=== PATIENT | male | born 1945 | race Caucasian/White ===

== ENCOUNTER 2024-01-26 11:32 | Outpatient (CLI) | payer OTHER, SELFPAY ==
--- NOTE | 2024-01-26 11:43 | XR_ITS ---
WS: [id number] PROCEDURE: XR chest 2V* [id number] CLINICAL INFORMATION: CAD COMPARISON: None. FINDINGS: Heart: Normal cardiac silhouette. Lungs: Moderate chronic emphysematous changes. A few calcified granulomas. Bones: Osteopenia. Moderate thoracic kyphosis. Chronic anterior wedging in the mid and lower thoracic spine. Chronic compression fracture with anterior wedging approximately T10. Loss of approximately 4 0% to body height at this level with mild focal kyphosis. Ankylosis thoracic spine. IMPRESSION: 1. Chronic emphysematous changes. Lungs are well aerated. 2. Normal cardiac silhouette. 3. Chronic appearing compression fracture with anterior wedging approximately T10. This could be fur ther evaluated with MRI or CT.
--- NOTE | 2024-01-26 13:45 | USCV_ITS ---
[place] Age: 78 Gender: M : 1945 Exam Date: 01/26/2024 13:47 Ordering Phys: Vera Segundo APRN Technologist: NIA Exam Location: [facility] – [place] Indication: CAD BP: 118 / 70 HR: 172 Rhythm: Sinus Technical Quality: Adequate MEASUREMENTS (Male / Female) Normal Values 2D ECHO LV Diastolic Diameter PLAX 4.9 cm 4.2 - 5.9 / 3.9 - 5.3 cm IVS Diastolic Thickness 1.2 cm 0.6 - 1.0 / 0.6 - 0.9 cm IVS Systolic Thickness 1.5 cm LVPW Diastolic Thickness 0.8 cm 0.6 - 1.0 / 0.6 - 0.9 cm LVPW Systolic Thickness 1.8 cm LVOT Diameter 2.2 cm LV Ejection Fraction 2D Teich 74.3 % LV Ejection Fraction MOD 2C 66.9 % LV Ejection Fraction 2C AL 68.8 % LA Diameter 2.6 cm RA Systolic Volume 4C AL 31.9 ml RA Systolic Volume 4C MOD 30.2 ml LA Sys Volume AL 23.5 cm cubed LA Sys Volume Index AL 12.1 cm cubed/m squared Aorta at Sinotubular Diameter 3.3 cm IVC Diameter 1.9 cm M-MODE LA Ao Ratio MM 1.0 AV Cusp Separation MM 1.3 cm DOPPLER AV Peak Velocity 142.0 cm/s LVOT Peak Velocity 115.0 cm/s AV Area Cont Eq vti 2.9 cm squared AV Area Cont Eq pk 3.0 cm squared MV Peak Velocity 83.0 cm/s MV Area PHT 2.9 cm squared Mitral E to A Ratio 1.0 TV Peak Velocity 250.4 cm/s TR Peak Velocity 252.0 cm/s TR Peak Gradient 25.4 mmHg TR Mean Velocity 178.0 cm/s TR Mean Gradient 14.4 mmHg TR Velocity Time Integral 74.6 cm Right Atrial Pressure 3.0 mmHg Pulmonary Artery Systolic Pressu 28.4 mmHg PV Peak Velocity 127.7 cm/s FINDINGS Left Ventricle Normal left ventricular size and systolic function, EF 69%.mild left ventricular hypertrophy. No regional wall motion abnormalities. Right Ventricle The right ventricle is normal in size and function. Right Atrium The right atrium is normal in size. Left Atrium The left atrium is normal in size. Mitral Valve Trace to mild mitral valve regurgitation. Aortic Valve Thickened aortic valve. Tricuspid Valve Mild tricuspid valve regurgitation. Estimated pulmonary artery peak systolic pressure 28 mmHg Pulmonic Valve Mild pulmonary valve regurgitation. Pericardium Normal pericardium without effusion. Aorta Normal ascending aorta dimension. IVC Normal inferior vena cava. CONCLUSIONS Normal left ventricular size and systolic function, EF 69%.mild left ventricular hypertrophy. No regional wall motion abnormalities. Trace to mild mitral valve regurgitation. Thickened aortic valve. Mild tricuspid valve regurgitation. Calculated PA pressure was within normal limits. Mild pulmonary valve regurgitation. There is no pericardial effusion. There are no intracardiac masses. No similar previous studies are available for comparison Dr Marcio Tay MD [facility] (Electronically Signed) Final Date: 28 January 2024 09:33 S
== END 2024-01-26 11:33 | disposition home or self-care (01) ==
PROVIDERS: Visit Provider Nurse Practitioner Family
DX: I25.10 Atherosclerotic heart disease of native coronary artery without angina pectoris (principal); I07.1 Rheumatic tricuspid insufficiency
CPT/HCPCS: 71046; 93306